=== PATIENT | female | born 1980 | race Caucasian/White ===

== ENCOUNTER 2017-07-01 10:44 | Emergency (ER) | payer SELFPAY ==
[~2017-07-01] VITALS: Ht 172.7 cm; Wt 79.4 kg
[2017-07-01] MEDS ORDERED: CEPHALEXIN500 M1 PO (12:56)
== END 2017-07-01 14:02 | disposition home or self-care (01) ==
LOC: ED 10:44
DX: S81.041A Puncture wound with foreign body, right knee, initial encounter (principal); Z98.51 Tubal ligation status; W22.8XXA Striking against or struck by other objects, initial encounter; Y93.89 Activity, other specified; Y92.89 Other specified places as the place of occurrence of the external cause; Y99.9 Unspecified external cause status